=== PATIENT | male | born 1960 | race Two or more races ===

== ENCOUNTER → 2017-10-08 | Outpatient (CLI) | payer MEDICAID | END | disposition home or self-care (01) | LOC: RADPV 09:03 | PROVIDERS: ATTEND Hospitalist | DX: N18.3 Chronic kidney disease, stage 3 (moderate) (principal) | CPT/HCPCS: 76770 ==

== ENCOUNTER 2019-09-29 11:31 | Inpatient (IN) | payer MEDICAID, MEDICARE ==
[~2019-09-29] VITALS: Ht 172.7 cm; Wt 71.0 kg
[2019-09-29] MEDS ORDERED: INSU100V SQ (11:57)
[2019-09-29] MEDS ORDERED: ATOR20TA86 PO (11:57)
[2019-09-29] MEDS ORDERED: GABA-529 PO (11:57)
[2019-09-29] MEDS ORDERED: AMLO10TA7 PO (11:57)
[2019-09-29] MEDS ORDERED: LISI-662 PO (11:57)
[2019-09-29] MEDS ORDERED: FURO80 PO (11:57)
[2019-09-29] MEDS ORDERED: ASPI81 PO (11:57)
[2019-09-29] MEDS ORDERED: LINA5TAB PO (11:57)
[2019-09-29] MEDS ORDERED: METO50 PO (11:57)
[2019-09-29] MEDS ORDERED: TAMS-13 PO (11:57)
[2019-09-29] MEDS ORDERED: INSU100I26 SQ (11:57)
[2019-09-29 12:01] LABS: BASOPHILS % (AUTO) 0.7 % (0.0-2.0); EOSINOPHILS % (AUTO) 1.9 % (1.0-6.0); HEMOGLOBIN 7.4 g/dL (13.5-17.5); LYMPHOCYTES # (AUTO) 1.1 K/uL (1.0-4.8); LYMPHOCYTES % (AUTO) 8.6 % (22.0-44.0); MEAN CORPUSCULAR HEMOGLOBIN 28.2 pg (26.0-34.0); MEAN CORPUSCULAR HGB CONC 33.9 G/dL (31.0-37.0); MEAN CORPUSCULAR VOLUME 83 fL (80-100); MONOCYTES # (AUTO) 1.2 K/uL (0.1-1.0); MONOCYTES % (AUTO) 8.9 % (2.0-9.0); NEUTROPHILS # (AUTO) 10.4 K/uL (1.8-7.7); NEUTROPHILS % (AUTO) 79.9 % (40.0-70.0); PLATELET COUNT (AUTO) 327 K/uL (150-450); RED BLOOD CELL COUNT(AUTO) 2.64 MIL/uL (4.50-5.90); RED CELL DISTRIBUTION WIDTH 14.8 % (11.5-14.5)
[2019-09-29 12:11] LABS: APPEARANCE,URINE CLEAR (CLEAR); BILIRUBIN,URINE NEGATIVE (NEGATIVE); GLUCOSE, URINE (UA) 100 mg/dL (NEGATIVE); KETONES,URINE NEGATIVE (NEGATIVE); NITRATE,URINE NEGATIVE (NEGATIVE); OCCULT BLOOD,URINE SMALL (NEGATIVE); PROTEIN,URINE SEE CONFIRM (NEGATIVE); UROBILINOGEN,URINE 0.2 mg/dL (<=1.0)
[2019-09-29 12:16] LABS: BACTERIA,URINE None Seen /HPF (None Seen); LEUKOCYTE ESTERASE ,URINE TRACE (NEGATIVE); SQUAMOUS EPITHELIAL CELL,UR Few /LPF (None Seen); SULFOSALICYLIC ACID,URINE 3+ (Negative); WBC,URINE 0-2 /HPF (0-5)
[2019-09-29 12:23] LABS: INR 1.1 (0.9-1.1)
[2019-09-29 12:44] LABS: ALBUMIN 2.7 g/dL (3.4-5.0); BILIRUBIN,TOTAL 0.3 mg/dL (0.1-1.0); CALCIUM, TOTAL 7.9 mg/dL (8.8-10.5); CREATININE 9.21 mg/dL (0.60-1.30); MAGNESIUM 2.1 mg/dL (1.80-2.40); POTASSIUM 4.3 mmol/L (3.5-5.1); TOTAL PROTEIN, SERUM 6.6 g/dL (6.4-8.2)
[2019-09-29] MEDS ORDERED: FentaNYL CITRATE-PF 100 MCG/2 ML VIAL ONE (13:41)
[2019-09-29] MEDS ORDERED: NALOXONE HCL 0.4 MG/ML VIAL ONE (13:41)
[2019-09-29] MEDS ORDERED: MIDAZOLAM HCL 2 MG/2 ML VIAL ONE (13:41)
[2019-09-29] MEDS ORDERED: FLUMAZENIL 0.1 MG/ML 5 ML VIAL IVP ONE (13:41)
[2019-09-29] MEDS ORDERED: HEPARIN SODIUM 1000 UNITS/NS 500 ML ONE (13:42)
[2019-09-29] MEDS ORDERED: LIDOCAINE 1%/EPI 1:200,000/PF 10 ML VIAL ONE (13:42)
[2019-09-29] MEDS ORDERED: HEPARIN SODIUM,PORCINE 1,000 UNITS/ML 10 ML VIAL ONE (13:42)
[2019-09-29] MEDS ORDERED: 0.9% SODIUM CHLORIDE 10 ML SYRINGE IVP PRN (13:45)
[2019-09-29] MEDS ORDERED: ACETAMINOPHEN 325 MG TABLET PO PRN (13:45)
[2019-09-29] MEDS ORDERED: ONDANSETRON HCL 4 MG/2 ML VIAL IVP PRN (13:45)
[2019-09-29] MEDS ORDERED: SODIUM CHLORIDE 0.9% 250 ML IV ONE (14:30)
[2019-09-29] MEDS ORDERED: MIDAZOLAM HCL 2 MG/2 ML VIAL IVP ONE (14:45)
[2019-09-29] MEDS ORDERED: FentaNYL CITRATE-PF 100 MCG/2 ML VIAL IVP ONE (14:46)
[2019-09-29 15:27] VITALS: BP 152/83
[2019-09-29 16:14] VITALS: BP 157/87
[2019-09-29] MEDS ORDERED: HEPARIN SODIUM,PORCINE 1,000 UNITS/ML VIAL IVP ONE (16:50)
[2019-09-29 17:28] LABS: GLUCOMETER DEV NAME(LOC) 5N.1; GLUCOSE,POINT OF CARE 75 MG/DL (70-110)
[2019-09-29] MEDS ORDERED: SODIUM CHLORIDE 0.9% 50 ML ONE (20:02)
[2019-09-29] MEDS: AmLODIPine BESYLATE 10 MG TABLET PO SCH (20:10)
[2019-09-29] MEDS: METOPROLOL TARTRATE 25 MG TABLET PO SCH (20:10)
[2019-09-29] MEDS: SOD FERRIC GLUC COMPLX/SUCROSE 125 MG in SODIUM CHLORIDE 0.9% 100 ML IV SCH (20:13)
[2019-09-29 21:22] VITALS: BP 181/83
[2019-09-29 21:46] LABS: GLUCOMETER DEV NAME(LOC) 5N.1; GLUCOSE,POINT OF CARE 146 MG/DL (70-110)
[2019-09-29] MEDS ORDERED: CloNIDine HCL 0.1 MG TABLET PO ONE (22:00)
[2019-09-29] MEDS ORDERED: DEXTROSE 50%-WATER 25 GM/50 ML SYRINGE IVP PRN (22:00)
[2019-09-29] MEDS: INSULIN GLARGINE,HUM.REC.ANLOG 100 UNITS/ML SQ SCH (22:22)
[2019-09-30] VITALS (7 sets, daily range): BP systolic 134–159; BP diastolic 64–83
[2019-09-30] MEDS: ACETAMINOPHEN 325 MG TABLET PO PRN (00:23)
[2019-09-30] MEDS ORDERED: SODIUM CHLORIDE 0.9% 2,000 ML ONE (05:39)
[2019-09-30 06:59] LABS: GLUCOMETER DEV NAME(LOC) 5S.1; GLUCOSE,POINT OF CARE 74 MG/DL (70-110)
[2019-09-30 07:00] LABS: GLUCOMETER DEV NAME(LOC) 5S.1; GLUCOSE,POINT OF CARE 64 MG/DL (70-110)
[2019-09-30 07:50] LABS: BASOPHILS % (AUTO) 0.5 % (0.0-2.0); HEMATOCRIT 21.6 % (41-53); HEMOGLOBIN 7.3 g/dL (13.5-17.5); LYMPHOCYTES % (AUTO) 11.9 % (22.0-44.0); MEAN CORPUSCULAR HEMOGLOBIN 27.8 pg (26.0-34.0); MEAN CORPUSCULAR VOLUME 82 fL (80-100); MONOCYTES # (AUTO) 0.5 K/uL (0.1-1.0); MONOCYTES % (AUTO) 6.3 % (2.0-9.0); NEUTROPHILS # (AUTO) 6.7 K/uL (1.8-7.7); NEUTROPHILS % (AUTO) 79.3 % (40.0-70.0); PLATELET COUNT (AUTO) 331 K/uL (150-450); RED BLOOD CELL COUNT(AUTO) 2.63 MIL/uL (4.50-5.90); RED CELL DISTRIBUTION WIDTH 14.7 % (11.5-14.5)
[2019-09-30 08:02] LABS: CALCIUM, TOTAL 7.8 mg/dL (8.8-10.5); CREATININE 5.07 mg/dL (0.60-1.30); PHOSPHORUS 4.8 mg/dL (2.5-4.9); POTASSIUM 3.7 mmol/L (3.5-5.1)
[2019-09-30] MEDS: CALCITRIOL 0.25 MCG CAPSULE PO SCH (09:08)
[2019-09-30] MEDS: VITAMIN B COMP/VIT C/FOLIC ACID CAPSULE PO SCH (09:08)
[2019-09-30] MEDS: METOPROLOL TARTRATE 25 MG TABLET PO SCH ×2 (09:08→21:15)
[2019-09-30] MEDS: EPOETIN ALFA 10,000 UNITS/ML 2 ML VIAL SQ SCH (09:09)
[2019-09-30] MEDS: AmLODIPine BESYLATE 10 MG TABLET PO SCH (09:09)
[2019-09-30 13:05] LABS: GLUCOMETER DEV NAME(LOC) 5S.1; GLUCOSE,POINT OF CARE 115 MG/DL (70-110)
[2019-09-30 13:05] LABS: GLUCOMETER DEV NAME(LOC) 5N.1; GLUCOSE,POINT OF CARE 132 MG/DL (70-110)
[2019-09-30] MEDS: SOD FERRIC GLUC COMPLX/SUCROSE 125 MG in SODIUM CHLORIDE 0.9% 100 ML IV SCH (16:21)
[2019-09-30] MEDS ORDERED: HEPARIN SODIUM,PORCINE 1,000 UNITS/ML VIAL IVP ONE (16:53)
[2019-09-30] MEDS: INSULIN LISPRO 100 UNITS/ML SQ PRN (21:10)
[2019-09-30] MEDS: INSULIN GLARGINE,HUM.REC.ANLOG 100 UNITS/ML SQ SCH (21:20)
[2019-10-01] MEDS: ACETAMINOPHEN 325 MG TABLET PO PRN ×2 (01:19→18:32)
[2019-10-01 01:33] LABS: GLUCOMETER DEV NAME(LOC) 5N.1; GLUCOSE,POINT OF CARE 136 MG/DL (70-110)
[2019-10-01 01:33] LABS: GLUCOMETER DEV NAME(LOC) 5N.1; GLUCOSE,POINT OF CARE 93 MG/DL (70-110)
[2019-10-01 05:05] VITALS: BP 147/71
[2019-10-01] MEDS: INSULIN LISPRO 100 UNITS/ML SQ PRN ×2 (06:01→21:15)
[2019-10-01 07:15] VITALS: BP 153/78
[2019-10-01] MEDS: CALCITRIOL 0.25 MCG CAPSULE PO SCH (10:49)
[2019-10-01] MEDS: METOPROLOL TARTRATE 25 MG TABLET PO SCH ×2 (10:49→21:10)
[2019-10-01] MEDS: AmLODIPine BESYLATE 10 MG TABLET PO SCH (10:49)
[2019-10-01] MEDS: VITAMIN B COMP/VIT C/FOLIC ACID CAPSULE PO SCH (10:49)
[2019-10-01 12:00] VITALS: BP 138/72
[2019-10-01 14:59] LABS: GLUCOMETER DEV NAME(LOC) 5N.1; GLUCOSE,POINT OF CARE 137 MG/DL (70-110)
[2019-10-01 14:59] LABS: GLUCOMETER DEV NAME(LOC) 5S.1; GLUCOSE,POINT OF CARE 81 MG/DL (70-110)
[2019-10-01 15:24] VITALS: BP 142/82
[2019-10-01] MEDS: SOD FERRIC GLUC COMPLX/SUCROSE 125 MG in SODIUM CHLORIDE 0.9% 100 ML IV SCH (17:07)
[2019-10-01] MEDS ORDERED: HEPARIN SODIUM,PORCINE 1,000 UNITS/ML VIAL ONE (17:35)
[2019-10-01] MEDS ORDERED: ZOLPIDEM TARTRATE 5 MG TABLET PO PRN (19:45)
[2019-10-01 19:49] VITALS: BP 149/72
[2019-10-01 20:10] LABS: GLUCOMETER DEV NAME(LOC) 5S.1; GLUCOSE,POINT OF CARE 107 MG/DL (70-110)
[2019-10-01] MEDS: INSULIN GLARGINE,HUM.REC.ANLOG 100 UNITS/ML SQ SCH (21:15)
[2019-10-01 23:43] VITALS: BP 177/93
[2019-10-02] MEDS ORDERED: HydrALAZINE HCL 10 MG TABLET PO PRN (00:15)
[2019-10-02] MEDS: ZOLPIDEM TARTRATE 5 MG TABLET PO PRN ×2 (00:29→23:02)
[2019-10-02] MEDS: LORATADINE 10 MG TABLET PO PRN (00:29)
[2019-10-02 04:27] VITALS: BP 146/71
[2019-10-02 07:59] VITALS: BP 140/70
[2019-10-02] MEDS: OMEPRAZOLE 20 MG CAPSULE PO SCH (08:30)
[2019-10-02 08:43] LABS: BASOPHILS % (AUTO) 1.1 % (0.0-2.0); EOSINOPHILS % (AUTO) 2.2 % (1.0-6.0); HEMATOCRIT 23.8 % (41-53); HEMOGLOBIN 8.2 g/dL (13.5-17.5); LYMPHOCYTES # (AUTO) 1.4 K/uL (1.0-4.8); LYMPHOCYTES % (AUTO) 19.4 % (22.0-44.0); MEAN CORPUSCULAR HEMOGLOBIN 28.3 pg (26.0-34.0); MEAN CORPUSCULAR HGB CONC 34.5 G/dL (31.0-37.0); MEAN CORPUSCULAR VOLUME 82 fL (80-100); MONOCYTES % (AUTO) 14.3 % (2.0-9.0); NEUTROPHILS # (AUTO) 4.5 K/uL (1.8-7.7); PLATELET COUNT (AUTO) 379 K/uL (150-450); RED CELL DISTRIBUTION WIDTH 14.2 % (11.5-14.5)
[2019-10-02 08:46] LABS: CALCIUM, TOTAL 8.3 mg/dL (8.8-10.5); CREATININE 4.78 mg/dL (0.60-1.30); POTASSIUM 3.8 mmol/L (3.5-5.1)
[2019-10-02] MEDS: METOPROLOL TARTRATE 25 MG TABLET PO SCH ×2 (08:53→21:31)
[2019-10-02] MEDS: CALCITRIOL 0.25 MCG CAPSULE PO SCH (08:53)
[2019-10-02] MEDS: VITAMIN B COMP/VIT C/FOLIC ACID CAPSULE PO SCH (08:53)
[2019-10-02] MEDS: AmLODIPine BESYLATE 10 MG TABLET PO SCH (08:53)
[2019-10-02 11:58] LABS: GLUCOMETER DEV NAME(LOC) 5N.1; GLUCOSE,POINT OF CARE 217 MG/DL (70-110)
[2019-10-02 11:59] LABS: GLUCOMETER DEV NAME(LOC) 5N.1; GLUCOSE,POINT OF CARE 97 MG/DL (70-110)
[2019-10-02 12:16] VITALS: BP 149/80
[2019-10-02 16:32] VITALS: BP 137/80
[2019-10-02 17:04] LABS: GLUCOMETER DEV NAME(LOC) 5S.1; GLUCOSE,POINT OF CARE 115 MG/DL (70-110)
[2019-10-02 17:04] LABS: GLUCOMETER DEV NAME(LOC) 5S.1; GLUCOSE,POINT OF CARE 39 MG/DL (70-110)
[2019-10-02 17:04] LABS: GLUCOMETER DEV NAME(LOC) 5S.1; GLUCOSE,POINT OF CARE 114 MG/DL (70-110)
[2019-10-02 17:04] LABS: GLUCOMETER DEV NAME(LOC) 5S.1; GLUCOSE,POINT OF CARE 60 MG/DL (70-110)
[2019-10-02] MEDS: SOD FERRIC GLUC COMPLX/SUCROSE 125 MG in SODIUM CHLORIDE 0.9% 100 ML IV SCH (17:33)
[2019-10-02] MEDS: INSULIN LISPRO 100 UNITS/ML SQ PRN (17:36)
[2019-10-02 20:21] VITALS: BP 152/79
[2019-10-02] MEDS: TAMSULOSIN HCL 0.4 MG CAPSULE PO SCH (21:32)
[2019-10-02] MEDS: INSULIN GLARGINE,HUM.REC.ANLOG 100 UNITS/ML SQ SCH (21:33)
[2019-10-03 00:15] VITALS: BP 147/72
[2019-10-03] MEDS: LORATADINE 10 MG TABLET PO PRN (00:18)
[2019-10-03 04:07] LABS: GLUCOMETER DEV NAME(LOC) 5N.1; GLUCOSE,POINT OF CARE 83 MG/DL (70-110)
[2019-10-03 04:07] LABS: GLUCOMETER DEV NAME(LOC) 5S.1; GLUCOSE,POINT OF CARE 110 MG/DL (70-110)
[2019-10-03 05:04] VITALS: BP 142/78
[2019-10-03] MEDS: OMEPRAZOLE 20 MG CAPSULE PO SCH (06:37)
[2019-10-03 06:41] LABS: CALCIUM, TOTAL 8.7 mg/dL (8.8-10.5); CREATININE 5.87 mg/dL (0.60-1.30); POTASSIUM 3.4 mmol/L (3.5-5.1)
[2019-10-03 07:29] LABS: GLUCOMETER DEV NAME(LOC) 5S.1; GLUCOSE,POINT OF CARE 190 MG/DL (70-110)
[2019-10-03 07:29] LABS: GLUCOMETER DEV NAME(LOC) 5S.1; GLUCOSE,POINT OF CARE 56 MG/DL (70-110)
[2019-10-03] MEDS ORDERED: SODIUM CHLORIDE 0.9% 2,000 ML ONE (07:30)
[2019-10-03 07:31] VITALS: BP 152/77
[2019-10-03] MEDS: CALCITRIOL 0.25 MCG CAPSULE PO SCH (08:05)
[2019-10-03] MEDS: VITAMIN B COMP/VIT C/FOLIC ACID CAPSULE PO SCH (08:05)
[2019-10-03] MEDS: EPOETIN ALFA 10,000 UNITS/ML 2 ML VIAL SQ SCH (08:05)
[2019-10-03 10:55] VITALS: BP 141/81
[2019-10-03] MEDS: METOPROLOL TARTRATE 25 MG TABLET PO SCH ×2 (12:09→21:11)
[2019-10-03] MEDS: AmLODIPine BESYLATE 10 MG TABLET PO SCH (12:09)
[2019-10-03 12:33] LABS: GLUCOMETER DEV NAME(LOC) 5S.1; GLUCOSE,POINT OF CARE 88 MG/DL (70-110)
[2019-10-03 12:34] LABS: GLUCOMETER DEV NAME(LOC) 5S.1; GLUCOSE,POINT OF CARE 132 MG/DL (70-110)
[2019-10-03] MEDS: ACETAMINOPHEN 325 MG TABLET PO PRN (15:39)
[2019-10-03] MEDS ORDERED: GABAPENTIN 100 MG CAPSULE PO SCH (17:15)
[2019-10-03] MEDS ORDERED: METO25 PO (17:23)
[2019-10-03] MEDS ORDERED: CALC0.253 PO (17:24)
[2019-10-03] MEDS ORDERED: ASPI-1522 PO (17:24)
[2019-10-03] MEDS ORDERED: GLIP5TAB11 PO (17:24)
[2019-10-03 17:28] VITALS: BP 146/80
[2019-10-03] MEDS: SOD FERRIC GLUC COMPLX/SUCROSE 125 MG in SODIUM CHLORIDE 0.9% 100 ML IV SCH (17:35)
[2019-10-03 20:27] VITALS: BP 150/79
[2019-10-03] MEDS: INSULIN GLARGINE,HUM.REC.ANLOG 100 UNITS/ML SQ SCH (21:00)
[2019-10-03] MEDS: ZOLPIDEM TARTRATE 5 MG TABLET PO PRN (21:11)
[2019-10-03] MEDS: TAMSULOSIN HCL 0.4 MG CAPSULE PO SCH (21:11)
[2019-10-03] MEDS: INSULIN LISPRO 100 UNITS/ML SQ PRN (21:14)
[2019-10-03] MEDS ORDERED: GABAPENTIN 100 MG CAPSULE PO ONE (21:30)
[2019-10-03 22:51] LABS: GLUCOMETER DEV NAME(LOC) 5N.1; GLUCOSE,POINT OF CARE 161 MG/DL (70-110)
[2019-10-03 22:51] LABS: GLUCOMETER DEV NAME(LOC) 5S.1; GLUCOSE,POINT OF CARE 171 MG/DL (70-110)
[2019-10-03 22:51] LABS: GLUCOMETER DEV NAME(LOC) 5S.1; GLUCOSE,POINT OF CARE 133 MG/DL (70-110)
[2019-10-04 00:24] VITALS: BP 153/77
[2019-10-04] MEDS: OMEPRAZOLE 20 MG CAPSULE PO SCH (05:12)
[2019-10-04] MEDS ORDERED: SODIUM CHLORIDE 0.9% 1,000 ML ONE ×2 (05:22→10:09)
[2019-10-04 06:37] VITALS: BP 127/65
[2019-10-04] MEDS ORDERED: LIDOCAINE/PF 1% 30 ML VIAL ONE (07:48)
[2019-10-04] MEDS ORDERED: BACITRACIN 50,000 UNITS/VIAL ONE (07:49)
[2019-10-04] MEDS ORDERED: HEPARIN SODIUM,PORCINE 5,000 UNITS/ML VIAL ONE ×2 (07:50→13:06)
[2019-10-04] MEDS ORDERED: FUROSEMIDE 80 MG TABLET PO SCH (08:00)
[2019-10-04 08:10] VITALS: BP 154/81
[2019-10-04] MEDS: AmLODIPine BESYLATE 10 MG TABLET PO SCH (08:47)
[2019-10-04] MEDS ORDERED: SODIUM CHLORIDE 0.9% 1,000 ML IV ONE (09:00)
[2019-10-04] MEDS ORDERED: SCOPOLAMINE HYDROBROMIDE 1.5 MG PATCH TD ONE (09:30)
[2019-10-04] MEDS ORDERED: 0.9% SODIUM CHLORIDE 10 ML VIAL IVP ONE (12:00)
[2019-10-04] MEDS ORDERED: KETOROLAC TROMETHAMINE 60 MG/2 ML VIAL IM ONE (12:00)
[2019-10-04] MEDS ORDERED: EPHEDrine SULFATE 50 MG/ML VIAL IM ONE (12:00)
[2019-10-04] MEDS ORDERED: ONDANSETRON HCL 4 MG/2 ML VIAL IVP ONE (12:00)
[2019-10-04] MEDS ORDERED: LIDOCAINE/PF 2% 5 ML VIAL INJ ONE (12:00)
[2019-10-04] MEDS ORDERED: FentaNYL CITRATE-PF 100 MCG/2 ML VIAL IVP ONE (12:00)
[2019-10-04] MEDS ORDERED: PROPOFOL 1% 20 ML VIAL IVP ONE (12:00)
[2019-10-04] MEDS ORDERED: SODIUM CHLORIDE 0.9% 20 ML ONE (12:24)
[2019-10-04 12:40] LABS: GLUCOMETER DEV NAME(LOC) 5S.1; GLUCOSE,POINT OF CARE 95 MG/DL (70-110)
[2019-10-04] MEDS ORDERED: HYDROmorphone 2 MG/ML SYRINGE IVP PRN (14:00)
[2019-10-04] MEDS ORDERED: FentaNYL CITRATE-PF 100 MCG/2 ML VIAL IVP PRN (14:00)
[2019-10-04] MEDS: GABAPENTIN 100 MG CAPSULE PO SCH ×3 (16:00→21:06)
[2019-10-04] MEDS: METOPROLOL TARTRATE 25 MG TABLET PO SCH ×2 (17:03→21:06)
[2019-10-04] MEDS: CALCITRIOL 0.25 MCG CAPSULE PO SCH (17:03)
[2019-10-04] MEDS: VITAMIN B COMP/VIT C/FOLIC ACID CAPSULE PO SCH (17:03)
[2019-10-04] MEDS: SOD FERRIC GLUC COMPLX/SUCROSE 125 MG in SODIUM CHLORIDE 0.9% 100 ML IV SCH (17:05)
[2019-10-04 17:19] VITALS: BP 153/76
[2019-10-04] MEDS: OXYGEN THERAPY IH SCH (20:00)
[2019-10-04 20:09] LABS: GLUCOMETER DEV NAME(LOC) 5S.1; GLUCOSE,POINT OF CARE 102 MG/DL (70-110)
[2019-10-04 20:53] VITALS: BP 146/74
[2019-10-04] MEDS: ZOLPIDEM TARTRATE 5 MG TABLET PO PRN (21:06)
[2019-10-04] MEDS: TAMSULOSIN HCL 0.4 MG CAPSULE PO SCH (21:06)
[2019-10-04] MEDS: INSULIN LISPRO 100 UNITS/ML SQ PRN (21:10)
[2019-10-04] MEDS: INSULIN GLARGINE,HUM.REC.ANLOG 100 UNITS/ML SQ SCH (21:11)
[2019-10-04 22:17] LABS: GLUCOMETER DEV NAME(LOC) 5N.1; GLUCOSE,POINT OF CARE 209 MG/DL (70-110)
[2019-10-05 00:23] VITALS: BP 149/76
[2019-10-05 04:29] VITALS: BP 143/77
[2019-10-05] MEDS: OMEPRAZOLE 20 MG CAPSULE PO SCH (05:42)
[2019-10-05 07:13] VITALS: BP 151/88
[2019-10-05 07:14] LABS: GLUCOMETER DEV NAME(LOC) 5S.1; GLUCOSE,POINT OF CARE 91 MG/DL (70-110)
[2019-10-05 07:54] VITALS: BP 162/70
[2019-10-05] MEDS: OXYGEN THERAPY IH SCH (08:00)
[2019-10-05] MEDS: AmLODIPine BESYLATE 10 MG TABLET PO SCH (08:14)
[2019-10-05] MEDS: EPOETIN ALFA 10,000 UNITS/ML 2 ML VIAL SQ SCH (08:14)
[2019-10-05] MEDS: GABAPENTIN 100 MG CAPSULE PO SCH (08:14)
[2019-10-05] MEDS: VITAMIN B COMP/VIT C/FOLIC ACID CAPSULE PO SCH (08:14)
[2019-10-05] MEDS: METOPROLOL TARTRATE 25 MG TABLET PO SCH (08:14)
[2019-10-05] MEDS: CALCITRIOL 0.25 MCG CAPSULE PO SCH (08:14)
[2019-10-05 09:06] LABS: CALCIUM, TOTAL 7.8 mg/dL (8.8-10.5); CREATININE 6.27 mg/dL (0.60-1.30); POTASSIUM 4.2 mmol/L (3.5-5.1)
[2019-10-05 11:06] VITALS: BP 168/84
[2019-10-05] MEDS: INSULIN LISPRO 100 UNITS/ML SQ PRN (11:45)
[2019-10-05] MEDS ORDERED: B CO1CAP6 PO (12:18)
[2019-10-05] MEDS ORDERED: CALC25 PO (12:18)
[2019-10-05] MEDS ORDERED: GLIP5 PO (12:18)
[2019-10-05] MEDS ORDERED: OMEP20 PO (12:18)
[2019-10-05 20:01] LABS: GLUCOMETER DEV NAME(LOC) 5S.1; GLUCOSE,POINT OF CARE 159 MG/DL (70-110)
== END 2019-10-05 12:55 | disposition home or self-care (01) | DRG 264 ==
LOC: EMS 11:32 → 5N 15:09
PROVIDERS: ADMIT Hospitalist; ATTEND Hospitalist
PROC: 0JH63XZ Insertion of Tunneled Vascular Access Device into Chest Subcutaneous Tissue and Fascia, Percutaneous Approach (ICD-10-PCS; 2019-09-29)
PROC: 02HV33Z Insertion of Infusion Device into Superior Vena Cava, Percutaneous Approach (ICD-10-PCS; 2019-09-29)
PROC: B5181ZA Fluoroscopy of Superior Vena Cava using Low Osmolar Contrast, Guidance (ICD-10-PCS; 2019-09-29)
PROC: B548ZZA Ultrasonography of Superior Vena Cava, Guidance (ICD-10-PCS; 2019-09-29)
PROC: 03170ZD Bypass Right Brachial Artery to Upper Arm Vein, Open Approach (ICD-10-PCS; principal; 2019-10-04 13:11)
DX: I13.2 Hypertensive heart and chronic kidney disease with heart failure and with stage 5 chronic kidney disease, or end stage renal disease (principal); N18.6 End stage renal disease; E11.22 Type 2 diabetes mellitus with diabetic chronic kidney disease; E78.5 Hyperlipidemia, unspecified; D64.9 Anemia, unspecified; K21.9 Gastro-esophageal reflux disease without esophagitis; E11.319 Type 2 diabetes mellitus with unspecified diabetic retinopathy without macular edema; E11.51 Type 2 diabetes mellitus with diabetic peripheral angiopathy without gangrene; F17.210 Nicotine dependence, cigarettes, uncomplicated; G47.00 Insomnia, unspecified; I50.9 Heart failure, unspecified; K59.00 Constipation, unspecified; Z79.4 Long term (current) use of insulin; Z82.49 Family history of ischemic heart disease and other diseases of the circulatory system; Z83.3 Family history of diabetes mellitus; Z87.11 Personal history of peptic ulcer disease; Z89.511 Acquired absence of right leg below knee; Z91.14 Patient's other noncompliance with medication regimen; Z79.899 Other long term (current) drug therapy; Z79.82 Long term (current) use of aspirin
CPT/HCPCS: 36245; 36561; 76937; 83735; 83970; 84100; 86850; 86900; 86901; 87081; 87340; 93970; J0690; J0885; J1644; J1815; J1885; J2250; J2310; J2405; J2704; J2916; J3010; J3490; J7030; J7050

== ENCOUNTER 2019-10-10 07:26 | Emergency (ER) | payer MEDICARE ==
[~2019-10-10] VITALS: Ht 170.2 cm; Wt 73.0 kg
[~2019-10-10 07:26] MED LIST: AMLO10TA7 PO; ATOR20TA86 PO; B CO1CAP6 PO; CALC25 PO; FURO80 PO; GLIP5 PO; INSU100I26 SQ; INSU100V SQ; METO25 PO; OMEP20 PO; TAMS-13 PO
[2019-10-10] MEDS ORDERED: DOXYCYCLINE HYCLATE 100 MG CAPSULE PO ONE (08:30)
[2019-10-10 09:23] VITALS: BP 165/91
== END 2019-10-10 09:27 | disposition home or self-care (01) ==
LOC: EMS 07:29
DX: L03.113 Cellulitis of right upper limb (principal); I11.0 Hypertensive heart disease with heart failure; I50.9 Heart failure, unspecified; E11.9 Type 2 diabetes mellitus without complications; Z79.4 Long term (current) use of insulin; Z79.899 Other long term (current) drug therapy

== ENCOUNTER 2020-02-20 05:05 | Day surgery (SDC) | payer MEDICARE, MEDICAID ==
[~2020-02-20] VITALS: Ht 167.6 cm; Wt 71.8 kg
[2020-02-20] MEDS ORDERED: 0.9% SODIUM CHLORIDE 10 ML VIAL IVP ONE (05:06)
[2020-02-20] MEDS ORDERED: HEPARIN SODIUM,PORCINE 1,000 UNITS/ML 10 ML VIAL IVP ONE (05:06)
[2020-02-20] MEDS ORDERED: MIDAZOLAM HCL 2 MG/2 ML VIAL IVP ONE (05:06)
[2020-02-20] MEDS ORDERED: FentaNYL CITRATE-PF 100 MCG/2 ML VIAL IVP ONE (05:06)
[2020-02-20] MEDS ORDERED: EPHEDrine SULFATE 50 MG/ML VIAL IM ONE (05:06)
[2020-02-20] MEDS ORDERED: KETAMINE HCL 50 MG/ML 10 ML VIAL IVP ONE (05:06)
[2020-02-20] MEDS ORDERED: SODIUM CHLORIDE 0.9% 1,000 ML ONE ×2 (05:32→08:37)
[2020-02-20] MEDS ORDERED: CeFAZolin 1 GM/DEXTROSE 50 ML IV ONE (05:32)
[2020-02-20] MEDS ORDERED: SODIUM CHLORIDE 0.9% 1,000 ML IV ONE (06:00)
[2020-02-20 06:33] LABS: BASOPHILS % (AUTO) 0.5 % (0.0-2.0); EOSINOPHILS % (AUTO) 3.6 % (1.0-6.0); HEMATOCRIT 34.1 % (41-53); HEMOGLOBIN 11.2 g/dL (13.5-17.5); LYMPHOCYTES # (AUTO) 1.7 K/uL (1.0-4.8); MEAN CORPUSCULAR HGB CONC 32.8 G/dL (31.0-37.0); MEAN CORPUSCULAR VOLUME 86 fL (80-100); MONOCYTES # (AUTO) 0.8 K/uL (0.1-1.0); MONOCYTES % (AUTO) 9.6 % (2.0-9.0); NEUTROPHILS # (AUTO) 5.8 K/uL (1.8-7.7); NEUTROPHILS % (AUTO) 66.3 % (40.0-70.0); PLATELET COUNT (AUTO) 216 K/uL (150-450); RED BLOOD CELL COUNT(AUTO) 3.99 MIL/uL (4.50-5.90); RED CELL DISTRIBUTION WIDTH 16.4 % (11.5-14.5)
[2020-02-20 06:44] LABS: CALCIUM, TOTAL 8.8 mg/dL (8.8-10.5); CREATININE 6.16 mg/dL (0.60-1.30); POTASSIUM 3.9 mmol/L (3.5-5.1)
[2020-02-20 06:53] LABS: PROTHROMBIN TIME 10.7 SEC (9.4-11.6)
[2020-02-20 06:54] LABS: ALBUMIN 3.5 g/dL (3.4-5.0); BILIRUBIN,TOTAL 0.4 mg/dL (0.1-1.0); TOTAL PROTEIN, SERUM 7.1 g/dL (6.4-8.2)
[2020-02-20] MEDS ORDERED: LIDOCAINE/PF 1% 30 ML VIAL ONE (07:24)
[2020-02-20] MEDS ORDERED: SODIUM CHLORIDE 0.9% 0 ML IV ONE (07:26)
[2020-02-20] MEDS ORDERED: BACITRACIN 50,000 UNITS/VIAL ONE (07:26)
[2020-02-20] MEDS ORDERED: HEPARIN SODIUM,PORCINE 5,000 UNITS/ML VIAL ONE (07:26)
[2020-02-20] MEDS ORDERED: SODIUM CHLORIDE 0.9% 20 ML ONE (07:30)
[2020-02-20] MEDS ORDERED: SODIUM CHLORIDE 0.9% 100 ML ONE (07:30)
[2020-02-20] MEDS ORDERED: HYDROmorphone 2 MG/ML SYRINGE IVP PRN (08:15)
[2020-02-20] MEDS ORDERED: FentaNYL CITRATE-PF 100 MCG/2 ML VIAL IVP PRN (08:15)
[2020-02-20] MEDS ORDERED: MEPERIDINE-PF 25 MG/ML VIAL IVP PRN (08:15)
[2020-02-20] MEDS ORDERED: HYDR-4061 PO (10:40)
[2020-02-20] MEDS ORDERED: HYDR-4119 PO (10:42)
[2020-02-20] MEDS ORDERED: OXYGEN THERAPY IH SCH (20:00)
== END 2020-02-20 12:30 | disposition home or self-care (01) ==
LOC: SURGERY 05:05
DX: E11.22 Type 2 diabetes mellitus with diabetic chronic kidney disease (principal); I12.0 Hypertensive chronic kidney disease with stage 5 chronic kidney disease or end stage renal disease; N18.6 End stage renal disease
CPT/HCPCS: 36415; 36830; 80053; 85025; 85610; 85730; 93005; C1768; J0690; J1644 ×2; J2250; J3010; J3490 ×4; J7030; J7050